=== PATIENT | male | born 1955 | race Caucasian/White ===

== ENCOUNTER 2018-04-15 09:58 | Day surgery (SDC) | payer OTHER ==
[~2018-04-15] VITALS: Ht 182.9 cm; Wt 88.5 kg
[2018-04-15] MEDS ORDERED: LIDOCAINE-MPF 1%, 5ML ONE (10:33)
[2018-04-15 11:00] LABS: BASOPHILS # (AUTO) 0.08 x10^3/uL (0-0.1); BASOPHILS % (AUTO) 1 % (0-1); EOSINOPHILS # (AUTO) 0.17 x10^3/uL (0-0.4); EOSINOPHILS % (AUTO) 2 % (1-7); LYMPHOCYTES # (AUTO) 1.78 x10^3/uL (1-3.4); LYMPHOCYTES % (AUTO) 21 % (22-44); MD NO; MEAN CORPUSCULAR HEMOGLOBIN 31.3 pg (27.5-34.5); MEAN CORPUSCULAR HGB CONC 34.3 g/dL (33.2-36.2); MEAN CORPUSCULAR VOLUME 91.4 fL (81-97); MEAN PLATELET VOLUME 7.1 fL (7.4-10.4); MONOCYTES # (AUTO) 0.68 x10^3/uL (0.2-0.8); MONOCYTES % (AUTO) 8 % (2-9); NEUTROPHILS % (AUTO) 68 % (42-75); PLATELET COUNT 369 x10^3/uL (130-400); RED BLOOD COUNT 4.35 x10^6/uL (4.38-5.82); RED CELL DISTRIBUTION WIDTH 12.9 % (9.4-14.8)
[2018-04-15 11:05] VITALS: BP 135/83
[2018-04-15 11:05] LABS: ALANINE AMINOTRANSFERASE 57 U/L (12-78); ALBUMIN 3.4 g/dL (3.4-5.0); ANION GAP 7 mmol/L (5-15); CALCIUM 8.7 mg/dL (8.5-10.1); CHLORIDE 109 mmol/L (98-107); CREATININE 1.03 mg/dL (0.7-1.3)
[2018-04-15 11:07] LABS: ALKALINE PHOSPHATASE 102 U/L (45-117); BILIRUBIN,TOTAL 0.7 mg/dL (0.2-1.0); TOTAL PROTEIN 7.3 g/dL (6.4-8.2)
[2018-04-15] MEDS ORDERED: NITROGLYCERIN 5 MG/ML, 10ML ONE (11:07)
[2018-04-15] MEDS ORDERED: MIDAZOLAM 1 MG/ML, 5ML ONE (11:07)
[2018-04-15] MEDS ORDERED: NALOXONE 1 MG/ML, 2ML ONE (11:07)
[2018-04-15] MEDS ORDERED: PROTAMINE SULFATE 10 MG/ML, 25ML ONE (11:07)
[2018-04-15] MEDS ORDERED: FLUMAZENIL 0.1 MG/1 ML, 5ML ONE (11:07)
[2018-04-15] MEDS ORDERED: FENTANYL PF 100 MCG/2ML ONE (11:07)
[2018-04-15] MEDS ORDERED: HEPARIN 1,000 UNITS/ML, 10ML ONE (11:07)
[2018-04-15] MEDS ORDERED: MONT10TA9 PO (11:10)
[2018-04-15] MEDS ORDERED: GABA100C PO (11:10)
[2018-04-15] MEDS ORDERED: DABI75CA3 PO (11:10)
[2018-04-15] MEDS ORDERED: celebrex PO (11:10)
[2018-04-15] MEDS ORDERED: keflex PO (11:10)
[2018-04-15 11:12] LABS: INTERNATIONAL NORMALIZED RATIO 0.97 (0.93-1.1); PROTHROMBIN TIME 10.3 Seconds (9.6-11.5)
[2018-04-15] MEDS ORDERED: SODIUM CHLORIDE 0.45% 1,000 ML IV SCH (12:00)
[2018-04-15] MEDS ORDERED: VISIPAQUE 270 MG/ML, 50ML BOTTLE ONE (13:00)
== END 2018-04-15 16:00 | disposition home or self-care (01) ==
LOC: OUT 09:58
PROVIDERS: ATTEND Surgery
DX: I70.712 Atherosclerosis of other type of bypass graft(s) of the extremities with intermittent claudication, left leg (principal); F17.210 Nicotine dependence, cigarettes, uncomplicated
CPT/HCPCS: 36200; 36415; 75630; 75710; 76937; 80053; 85025; 85610; 85730; 99156; 99157; C1751; C1769; C1894; J2250; J3010; Q9966; J1644; J2720; J2310

== ENCOUNTER 2018-04-21 09:36 | Inpatient (IN) | payer OTHER ==
[~2018-04-21] VITALS: Ht 182.9 cm; Wt 92.3 kg
[~2018-04-21 09:36] MED LIST: DABI75CA3 PO; GABA100C PO; HEPARIN 1,000 UNITS/ML, 10ML ONE; MONT10TA9 PO; PROTAMINE SULFATE 10 MG/ML, 5ML ONE; THROMBIN SPRAY 20,000 UNIT SPRAY TP ONE; celebrex PO; keflex PO
[2018-04-21 10:07] VITALS: BP 156/91
[2018-04-21] MEDS ORDERED: LACTATED RINGERS 1,000 ML IV SCH (10:13)
[2018-04-21] MEDS ORDERED: BACITRACIN 50,000 UNIT ONE (10:45)
[2018-04-21] MEDS ORDERED: MIDAZOLAM 1 MG/ML, 2ML ONE (11:30)
[2018-04-21] MEDS ORDERED: FENTANYL PF 100 MCG/2ML ONE ×4 (11:30→15:15)
[2018-04-21] MEDS ORDERED: BUPIVACAINE/PF-EPI 0.5% 1:200K ONE (12:15)
[2018-04-21] MEDS ORDERED: PROPOFOL 10 MG/ML, 20ML ONE (12:17)
[2018-04-21] MEDS ORDERED: METOCLOPRAMIDE 5 MG/ML, 2ML ONE (12:17)
[2018-04-21] MEDS ORDERED: DEXAMETHASONE 4 MG/ML, 5ML ONE (12:17)
[2018-04-21] MEDS ORDERED: CEFAZOLIN 1,000 MG ONE (12:17)
[2018-04-21] MEDS ORDERED: LIDOCAINE-MPF 2% ,5ML ONE (12:17)
[2018-04-21] MEDS ORDERED: ROCURONIUM 10 MG/ML,10ML ONE (12:17)
[2018-04-21] MEDS ORDERED: LABETALOL 20 MG/4 ML ONE (12:17)
[2018-04-21] MEDS ORDERED: LIDOCAINE JELLY 2%, 30GM ONE (12:17)
[2018-04-21] MEDS ORDERED: GLYCOPYRROLATE 0.2MG/1ML, 5ML ONE (12:17)
[2018-04-21] MEDS ORDERED: ONDANSETRON 2MG/ML, 2ML ONE (12:17)
[2018-04-21] MEDS ORDERED: HYDROmorphone 1 MG/ML, 1ML IV PRN (15:00)
[2018-04-21] MEDS ORDERED: ONDANSETRON 2MG/ML, 2ML IVPush PRN (15:00)
[2018-04-21] MEDS ORDERED: MEPERIDINE/PF 25MG/0.5ML IVPush PRN (15:00)
[2018-04-21] MEDS ORDERED: LABETALOL 5MG/ML, 20ML IV PRN (15:00)
[2018-04-21] MEDS ORDERED: MIDAZOLAM 1 MG/ML, 2ML IV PRN (15:00)
[2018-04-21] MEDS ORDERED: OXYcodone 5 MG/5 ML ORAL.SOL UDC PO PRN (15:00)
[2018-04-21] MEDS ORDERED: OXYcodone 5 MG/5 ML ORAL.SOL UDC ONE (15:15)
[2018-04-21] MEDS: FENTANYL PF 100 MCG/2ML IV PRN ×3 (15:20→15:46)
[2018-04-21] MEDS ORDERED: HYDROmorphone 2 MG/ML, 1ML ONE (15:42)
[2018-04-21] MEDS ORDERED: ONDANSETRON 2MG/ML, 2ML IV PRN (18:30)
[2018-04-21] MEDS ORDERED: morphine SULFATE 10 MG/ML, 1ML IV PRN (18:30)
[2018-04-21] MEDS ORDERED: ENOXAPARIN 30 MG/0.3 ML SQ SCH (18:30)
[2018-04-21] MEDS ORDERED: ACETAMINOPHEN 650 MG SUPP PR PRN (18:30)
[2018-04-21 19:16] VITALS: BP 141/78
[2018-04-21] MEDS: CEFAZOLIN PMX 1GM/50ML 50 ML IVPB SCH (20:51)
[2018-04-21] MEDS: GABAPENTIN 100 MG CAPSULE PO SCH (20:51)
[2018-04-21] MEDS ORDERED: MONTELUKAST 10 MG TABLET PO SCH (21:00)
[2018-04-21] MEDS: OXYcodone IR 5MG TABLET PO PRN (22:25)
[2018-04-22 00:05] VITALS: BP 121/67
[2018-04-22] MEDS: OXYcodone IR 5MG TABLET PO PRN ×4 (01:27→14:23)
[2018-04-22] MEDS: CEFAZOLIN PMX 1GM/50ML 50 ML IVPB SCH (04:08)
[2018-04-22 04:09] VITALS: BP 126/68
[2018-04-22] MEDS ORDERED: DABIGATRAN 75 MG CAPSULE PO SCH ×2 (09:00)
[2018-04-22 09:10] VITALS: BP 123/70
[2018-04-22] MEDS: GABAPENTIN 100 MG CAPSULE PO SCH (09:58)
[2018-04-22] MEDS ORDERED: OXYC5CAP2 PO (14:48)
[2018-04-22 14:50] VITALS: BP 123/70
== END 2018-04-22 15:35 | disposition home or self-care (01) | DRG 271 ==
LOC: OUT 09:36 → 4NOR 16:19 → OUT 16:28 → 4NOR 16:28 → DCLOUNGE 04-22 15:23
PROVIDERS: ADMIT Surgery; ATTEND Surgery
PROC: 04CJ0ZZ Extirpation of Matter from Left External Iliac Artery, Open Approach (ICD-10-PCS; 2018-04-21)
PROC: 04WY0KZ Revision of Nonautologous Tissue Substitute in Lower Artery, Open Approach (ICD-10-PCS; 2018-04-21)
PROC: 041 Lower Arteries, Bypass (ICD-10-PCS; 2018-04-21)
PROC: 03HY32Z Insertion of Monitoring Device into Upper Artery, Percutaneous Approach (ICD-10-PCS; 2018-04-21)
PROC: 04CL0ZZ Extirpation of Matter from Left Femoral Artery, Open Approach (ICD-10-PCS; principal; 2018-04-21 11:00)
DX: T82.7XXA Infection and inflammatory reaction due to other cardiac and vascular devices, implants and grafts, initial encounter (principal); I74.3 Embolism and thrombosis of arteries of the lower extremities; I74.5 Embolism and thrombosis of iliac artery; Y83.2 Surgical operation with anastomosis, bypass or graft as the cause of abnormal reaction of the patient, or of later complication, without mention of misadventure at the time of the procedure; J45.909 Unspecified asthma, uncomplicated; G62.9 Polyneuropathy, unspecified; R33.9 Retention of urine, unspecified; I70.0 Atherosclerosis of aorta; Y92.89 Other specified places as the place of occurrence of the external cause; Z79.02 Long term (current) use of antithrombotics/antiplatelets; Z86.718 Personal history of other venous thrombosis and embolism
CPT/HCPCS: 93005; G0378; J0690; J1100; J1170; J1644; J1650; J2250; J2405; J2704; J2720; J3010; J3490; C1757; C1768; J2270; J2765; J7120

== ENCOUNTER 2018-06-05 13:24 | Inpatient (IN) | payer OTHER ==
[~2018-06-05] VITALS: Ht 182.9 cm; Wt 91.6 kg
[~2018-06-05 13:24] MED LIST changes: -HEPARIN 1,000 UNITS/ML, 10ML ONE; +OXYC5CAP2 PO; -PROTAMINE SULFATE 10 MG/ML, 5ML ONE; -THROMBIN SPRAY 20,000 UNIT SPRAY TP ONE
[2018-06-05 14:19] LABS: MEAN CORPUSCULAR HEMOGLOBIN 29.5 pg (27.5-34.5); MEAN CORPUSCULAR HGB CONC 33.1 g/dL (33.2-36.2); MEAN CORPUSCULAR VOLUME 88.9 fL (81-97); MEAN PLATELET VOLUME 6.9 fL (7.4-10.4); PLATELET COUNT 305 x10^3/uL (130-400); RED BLOOD COUNT 4.87 x10^6/uL (4.38-5.82)
[2018-06-05 14:28] LABS: ALBUMIN 3.5 g/dL (3.4-5.0); ANION GAP 5 mmol/L (5-15); CALCIUM 9.1 mg/dL (8.5-10.1); CHLORIDE 109 mmol/L (98-107); CREATININE 1.44 mg/dL (0.7-1.3)
[2018-06-05] MEDS ORDERED: PIPERACILLIN/TAZO/PMX 3.375GM 50 ML ONE (14:53)
[2018-06-05] MEDS ORDERED: VANCOMYCIN PER PHARMACY MC ONE (15:00)
[2018-06-05] MEDS ORDERED: VANCOMYCIN 1,800 MG in SODIUM CHLORIDE 0.9% 250 ML IV ONE (15:00)
[2018-06-05] MEDS ORDERED: PIPERACILLIN/TAZO/PMX 3.375GM 50 ML IVPB ONE (15:00)
[2018-06-05 15:14] LABS: <RBC MORPHOLOGY> NORMAL; BASOPHILS # (AUTO) 0.06 x10^3/uL (0-0.1); BASOPHILS % (AUTO) 1 % (0-1); EOSINOPHILS % (AUTO) 0 % (1-7); LYMPHOCYTES # (AUTO) 1.48 x10^3/uL (1-3.4); LYMPHOCYTES % (AUTO) 11 % (22-44); MD MORPH REVIEW ONLY; MONOCYTES # (AUTO) 1.46 x10^3/uL (0.2-0.8); MONOCYTES % (AUTO) 11 % (2-9); NEUTROPHILS % (AUTO) 77 % (42-75)
[2018-06-05 15:15] LABS: <PLATELET ESTIMATE> ADEQUATE; <PLT MORPHOLOGY> NORMAL PLT MORPH
[2018-06-05] MEDS ORDERED: SODIUM CHLORIDE FLUSH 10ML SYR IVF PRN (15:30)
--- NOTE | 2018-06-05 15:57 | NUR ---
PT TO ED FOR INCREASING LEFT THIGH PAIN AND REDNEDD. HX OF FEM-FEM ON 04/21. INCISIONS ON LEG AND ABD HEALING WELL. EDMD ASSESSMENT COMPLETE AND ORDERS RECEIVED AND IMPLEMENTED. CONNECTED TO [employer]INT[employer]. VSS. NO NEEDS AT THIS TIME. PT RESTING IN ROOM WITH FAMILY AT BEDSIDE. AWAITING ROOM ASSIGNMENT
[2018-06-05] MEDS ORDERED: LABETALOL 5MG/ML, 20ML IVPush PRN (16:00)
[2018-06-05] MEDS ORDERED: ONDANSETRON 2MG/ML, 2ML IVPush PRN (16:00)
[2018-06-05] MEDS ORDERED: VANCOMYCIN PER PHARMACY MC PRN (16:00)
[2018-06-05] MEDS ORDERED: BISACODYL 10 MG SUPP PR PRN (16:00)
[2018-06-05] MEDS ORDERED: ZOLPIDEM 5MG TABLET PO PRN (16:00)
[2018-06-05] MEDS ORDERED: LIDODERM 5% PATCH TD PRN (16:00)
[2018-06-05] MEDS ORDERED: hydrALAzine 20 MG/ML, 1ML IVPush PRN (16:00)
[2018-06-05] MEDS ORDERED: DOCUSATE 100 MG CAPSULE PO PRN (16:00)
[2018-06-05] MEDS ORDERED: ONDANSETRON ODT 4 MG PO PRN (16:00)
[2018-06-05] MEDS ORDERED: POLYETHYLENE GLYCOL 17 GM PACKET PO PRN (16:00)
[2018-06-05 16:03] LABS: HCT (SEDRATE) 43.3 % (39.2-51.8)
--- NOTE | 2018-06-05 16:14 | NUR ---
pt resting in room. vss. awaiting room assignment.
[2018-06-05 16:21] LABS: FREE T4 (FREE THYROXINE) 1.14 ng/dL (0.76-1.46); THYROID STIMULATING HORMONE 3.97 mIU/L (0.358-3.740)
[2018-06-05] MEDS: LACTATED RINGERS 1,000 ML IV SCH (17:20)
[2018-06-05] MEDS: GABAPENTIN 100 MG CAPSULE PO SCH ×2 (17:20→20:27)
[2018-06-05] MEDS ORDERED: PHARMACOKINETIC CONSULTATION MC ONE (17:30)
[2018-06-05] MEDS ORDERED: PHARMACOKINETIC MONITORING MC PRN (17:30)
[2018-06-05 18:31] VITALS: BP 162/83
[2018-06-05 19:01] VITALS: BP 116/62
[2018-06-05] MEDS: DABIGATRAN 75 MG CAPSULE PO SCH (20:27)
[2018-06-05] MEDS: MONTELUKAST 10 MG TABLET PO SCH (20:27)
[2018-06-05] MEDS: PIPERACILLIN/TAZO 2.25 GM in SODIUM CHLORIDE 0.9% 50 ML IV SCH (20:28)
[2018-06-06 00:54] VITALS: BP 132/72
[2018-06-06] MEDS: PIPERACILLIN/TAZO 2.25 GM in SODIUM CHLORIDE 0.9% 50 ML IV SCH ×2 (02:36→08:53)
[2018-06-06 05:48] LABS: BASOPHILS # (AUTO) 0.05 x10^3/uL (0-0.1); BASOPHILS % (AUTO) 1 % (0-1); EOSINOPHILS # (AUTO) 0.18 x10^3/uL (0-0.4); EOSINOPHILS % (AUTO) 2 % (1-7); LYMPHOCYTES # (AUTO) 1.01 x10^3/uL (1-3.4); LYMPHOCYTES % (AUTO) 12 % (22-44); MD NO; MEAN CORPUSCULAR HEMOGLOBIN 29.5 pg (27.5-34.5); MEAN CORPUSCULAR HGB CONC 33.6 g/dL (33.2-36.2); MEAN CORPUSCULAR VOLUME 87.9 fL (81-97); MEAN PLATELET VOLUME 6.9 fL (7.4-10.4); MONOCYTES # (AUTO) 0.87 x10^3/uL (0.2-0.8); MONOCYTES % (AUTO) 11 % (2-9); NEUTROPHILS # (AUTO) 6.01 x10^3/uL (1.8-6.8); NEUTROPHILS % (AUTO) 74 % (42-75); PLATELET COUNT 252 x10^3/uL (130-400); RED BLOOD COUNT 4.15 x10^6/uL (4.38-5.82); RED CELL DISTRIBUTION WIDTH 13.3 % (9.4-14.8)
[2018-06-06 05:52] LABS: ANION GAP 5 mmol/L (5-15); CALCIUM 8.3 mg/dL (8.5-10.1); CHLORIDE 109 mmol/L (98-107); CREATININE 1.22 mg/dL (0.7-1.3)
[2018-06-06 07:11] VITALS: BP 123/72
[2018-06-06] MEDS: DABIGATRAN 75 MG CAPSULE PO SCH ×2 (08:53→22:13)
[2018-06-06] MEDS: GABAPENTIN 100 MG CAPSULE PO SCH ×3 (08:53→22:13)
[2018-06-06] MEDS: PANTOPROZOLE 40MG TABLET PO SCH (08:53)
[2018-06-06] MEDS: LACTATED RINGERS 1,000 ML IV SCH (08:54)
[2018-06-06] MEDS: VANCOMYCIN 1,800 MG in SODIUM CHLORIDE 0.9% 250 ML IV SCH (12:16)
[2018-06-06 12:35] VITALS: BP 142/84
[2018-06-06] MEDS: PIPERACILLIN/TAZO/PMX 2.25GM 50 ML IV SCH ×2 (15:08→22:11)
[2018-06-06] MEDS ORDERED: VANCOMYCIN 1,800 MG in SODIUM CHLORIDE 0.9% 250 ML IV SCH (17:30)
[2018-06-06 19:13] VITALS: BP 136/72
[2018-06-06] MEDS: MONTELUKAST 10 MG TABLET PO SCH (22:12)
[2018-06-06] MEDS: OXYcodone IR 5MG TABLET PO PRN ×2 (22:13→22:26)
[2018-06-07 00:48] VITALS: BP 116/74
[2018-06-07] MEDS: LACTATED RINGERS 1,000 ML IV SCH (02:06)
[2018-06-07] MEDS: PIPERACILLIN/TAZO/PMX 2.25GM 50 ML IV SCH ×2 (03:37→09:10)
[2018-06-07] MEDS ORDERED: OXYcodone IR 5MG TABLET PO PRN (04:38)
[2018-06-07 05:08] LABS: BASOPHILS # (AUTO) 0.05 x10^3/uL (0-0.1); BASOPHILS % (AUTO) 1 % (0-1); EOSINOPHILS # (AUTO) 0.31 x10^3/uL (0-0.4); EOSINOPHILS % (AUTO) 4 % (1-7); LYMPHOCYTES # (AUTO) 1.16 x10^3/uL (1-3.4); LYMPHOCYTES % (AUTO) 16 % (22-44); MD NO; MEAN CORPUSCULAR HEMOGLOBIN 29.8 pg (27.5-34.5); MEAN CORPUSCULAR HGB CONC 33.9 g/dL (33.2-36.2); MEAN CORPUSCULAR VOLUME 87.9 fL (81-97); MONOCYTES # (AUTO) 0.92 x10^3/uL (0.2-0.8); MONOCYTES % (AUTO) 13 % (2-9); NEUTROPHILS # (AUTO) 4.68 x10^3/uL (1.8-6.8); NEUTROPHILS % (AUTO) 66 % (42-75); PLATELET COUNT 255 x10^3/uL (130-400); RED BLOOD COUNT 4.02 x10^6/uL (4.38-5.82); RED CELL DISTRIBUTION WIDTH 13.2 % (9.4-14.8)
[2018-06-07 05:19] LABS: ANION GAP 3 mmol/L (5-15); CALCIUM 8.1 mg/dL (8.5-10.1); CHLORIDE 107 mmol/L (98-107)
[2018-06-07 05:20] LABS: CREATININE 1.31 mg/dL (0.7-1.3)
[2018-06-07] MEDS: VANCOMYCIN 1,800 MG in SODIUM CHLORIDE 0.9% 250 ML IV SCH (05:47)
[2018-06-07 08:00] VITALS: BP 119/70
[2018-06-07] MEDS: GABAPENTIN 100 MG CAPSULE PO SCH ×3 (08:40→20:17)
[2018-06-07] MEDS: PANTOPROZOLE 40MG TABLET PO SCH (08:40)
[2018-06-07] MEDS: DABIGATRAN 75 MG CAPSULE PO SCH ×2 (08:40→20:17)
[2018-06-07] MEDS: OXYcodone IR 5MG TABLET PO PRN ×4 (09:10→22:27)
[2018-06-07 14:00] VITALS: BP 139/73
[2018-06-07] MEDS: ACETAMINOPHEN 325 MG TABLET PO PRN (17:30)
[2018-06-07 20:11] VITALS: BP 126/62
[2018-06-07] MEDS: AMOXICILLIN/CLAV 875-125MG TABLET PO SCH (20:16)
[2018-06-07] MEDS: MONTELUKAST 10 MG TABLET PO SCH (20:18)
[2018-06-08] MEDS: OXYcodone IR 5MG TABLET PO PRN ×5 (02:50→20:34)
[2018-06-08 02:57] VITALS: BP 150/73
[2018-06-08 06:09] LABS: BASOPHILS # (AUTO) 0.05 x10^3/uL (0-0.1); BASOPHILS % (AUTO) 1 % (0-1); EOSINOPHILS # (AUTO) 0.33 x10^3/uL (0-0.4); EOSINOPHILS % (AUTO) 5 % (1-7); LYMPHOCYTES # (AUTO) 0.95 x10^3/uL (1-3.4); LYMPHOCYTES % (AUTO) 13 % (22-44); MD NO; MEAN CORPUSCULAR HGB CONC 34.2 g/dL (33.2-36.2); MEAN CORPUSCULAR VOLUME 87.6 fL (81-97); MEAN PLATELET VOLUME 6.8 fL (7.4-10.4); MONOCYTES # (AUTO) 0.87 x10^3/uL (0.2-0.8); MONOCYTES % (AUTO) 12 % (2-9); NEUTROPHILS # (AUTO) 5.11 x10^3/uL (1.8-6.8); NEUTROPHILS % (AUTO) 70 % (42-75); PLATELET COUNT 309 x10^3/uL (130-400); RED BLOOD COUNT 4.11 x10^6/uL (4.38-5.82); RED CELL DISTRIBUTION WIDTH 12.9 % (9.4-14.8)
[2018-06-08 06:16] LABS: ANION GAP 5 mmol/L (5-15); CALCIUM 8.6 mg/dL (8.5-10.1); CHLORIDE 106 mmol/L (98-107)
[2018-06-08 06:25] LABS: CREATININE 1.36 mg/dL (0.7-1.3)
[2018-06-08] MEDS: PANTOPROZOLE 40MG TABLET PO SCH (06:37)
[2018-06-08] MEDS: AMOXICILLIN/CLAV 875-125MG TABLET PO SCH ×2 (07:50→20:19)
[2018-06-08] MEDS: GABAPENTIN 100 MG CAPSULE PO SCH ×3 (07:50→20:19)
[2018-06-08] MEDS: DABIGATRAN 75 MG CAPSULE PO SCH ×2 (07:50→20:20)
[2018-06-08 08:00] VITALS: BP 130/69
[2018-06-08] MEDS: ACETAMINOPHEN 325 MG TABLET PO PRN ×3 (10:35→20:34)
[2018-06-08 14:12] VITALS: BP 136/74
[2018-06-08] MEDS: SODIUM CHLORIDE 0.9% 1,000 ML IV SCH (18:43)
[2018-06-08 19:29] VITALS: BP 108/61
[2018-06-08] MEDS: MONTELUKAST 10 MG TABLET PO SCH (20:21)
[2018-06-09 01:33] VITALS: BP 164/80
[2018-06-09] MEDS: OXYcodone IR 5MG TABLET PO PRN ×2 (01:44→07:49)
[2018-06-09] MEDS: SODIUM CHLORIDE 0.9% 1,000 ML IV SCH (05:09)
[2018-06-09] MEDS: ACETAMINOPHEN 325 MG TABLET PO PRN (05:13)
[2018-06-09 06:22] LABS: BASOPHILS # (AUTO) 0.05 x10^3/uL (0-0.1); BASOPHILS % (AUTO) 1 % (0-1); EOSINOPHILS # (AUTO) 0.26 x10^3/uL (0-0.4); EOSINOPHILS % (AUTO) 4 % (1-7); LYMPHOCYTES # (AUTO) 1.03 x10^3/uL (1-3.4); LYMPHOCYTES % (AUTO) 14 % (22-44); MD NO; MEAN CORPUSCULAR HEMOGLOBIN 29.9 pg (27.5-34.5); MEAN CORPUSCULAR HGB CONC 34.4 g/dL (33.2-36.2); MEAN CORPUSCULAR VOLUME 86.9 fL (81-97); MEAN PLATELET VOLUME 6.9 fL (7.4-10.4); MONOCYTES # (AUTO) 0.81 x10^3/uL (0.2-0.8); MONOCYTES % (AUTO) 11 % (2-9); NEUTROPHILS # (AUTO) 5.32 x10^3/uL (1.8-6.8); NEUTROPHILS % (AUTO) 71 % (42-75); PLATELET COUNT 283 x10^3/uL (130-400); RED BLOOD COUNT 3.97 x10^6/uL (4.38-5.82); RED CELL DISTRIBUTION WIDTH 13.1 % (9.4-14.8)
[2018-06-09 06:33] LABS: ANION GAP 4 mmol/L (5-15); CALCIUM 8.4 mg/dL (8.5-10.1); CHLORIDE 107 mmol/L (98-107)
[2018-06-09] MEDS: PANTOPROZOLE 40MG TABLET PO SCH (07:46)
[2018-06-09] MEDS: GABAPENTIN 100 MG CAPSULE PO SCH (07:46)
[2018-06-09] MEDS: AMOXICILLIN/CLAV 875-125MG TABLET PO SCH (07:47)
[2018-06-09] MEDS: DABIGATRAN 75 MG CAPSULE PO SCH (07:47)
[2018-06-09 08:37] VITALS: BP 108/64
[2018-06-09] MEDS ORDERED: AMOX1TAB12 PO (11:39)
== END 2018-06-09 12:50 | disposition home or self-care (01) | DRG 862 ==
LOC: ED 14:21 → EDIP 15:17 → 4WST 17:10 → DCLOUNGE 06-09 12:41
PROVIDERS: ADMIT Hospitalist; ATTEND Hospitalist
DX: T81.40XA Infection following a procedure, unspecified, initial encounter (principal); R65.11 Systemic inflammatory response syndrome (SIRS) of non-infectious origin with acute organ dysfunction; N17.9 Acute kidney failure, unspecified; L03.116 Cellulitis of left lower limb; J44.9 Chronic obstructive pulmonary disease, unspecified; I73.9 Peripheral vascular disease, unspecified; N18.3 Chronic kidney disease, stage 3 (moderate); Z87.891 Personal history of nicotine dependence
CPT/HCPCS: 36415; 80048; 80202; 82040; 83605; 84145; 84439; 84443; 85025; 85651; 86140; 87040; 93005; 96374; 99285; G0378; J2543; J3370; J7030; J7050; J7120

== ENCOUNTER 2018-08-04 09:56 | Emergency (ER) | payer OTHER ==
[~2018-08-04] VITALS: Ht 182.9 cm; Wt 88.6 kg
[~2018-08-04 09:56] MED LIST changes: +AMOX1TAB12 PO
--- NOTE | 2018-08-04 10:18 | NUR ---
REPORT RECEIVED, CARE ASSUMED.
--- NOTE | 2018-08-04 11:02 | NUR ---
DR GOOD AT BEDSIDE TO KRYSTLE MCKINNON.
--- NOTE | 2018-08-04 11:24 | NUR ---
PATIENT TRANSFERRED FROM TR 3 TO RM 37 VIA [facility]. REPORT FROM NEELA LEY. ASSUMED CARE OF PATIENT AT THIS TIME. VS STABLE AND UPDATED IN CHART. NAD NOTED. PATIENT TO AMBULATE PRIOR TO DC UPSTAIRS TO FINISH PROCEDURE PER DR GOOD.
--- NOTE | 2018-08-04 11:25 | NUR ---
THIS FLOAT RN AT BEDSIDE TO PROVIDE LUNCH RELIEF TO PRIMARY RNTEJAL. PT'S VS HAVE REMAINED STABLE. PT MOVED FROM T3 TO RM 37, REPORT TO NEELA NELSON. SPOKE WITH NEELA FRANCOIS IN [facility], PT TO RETURN TO THERE AFTER DC. ED MD GOOD AND ED RN LESLIE MADE AWARE. EXT [id number].
[2018-08-04 11:28] VITALS: BP 127/79
--- NOTE | 2018-08-04 11:32 | NUR ---
PATIENT AMBULATED DOWN HALLWAY WITH STEADY GAIT.
--- NOTE | 2018-08-04 11:55 | NUR ---
Patient/Caregiver given discharge instructions and they have confirmed that they understand the instructions. Patient ambulatory with steady gait. Patient instructed to return to Radiology for procedure. Per NEELA Galvin, leave both IV's (RT and LT AC) in place for radiology procedure.
== END 2018-08-04 11:57 | disposition home or self-care (01) ==
LOC: ED 11:32
DX: I95.9 Hypotension, unspecified (principal)
CPT/HCPCS: 93005; 99283

== ENCOUNTER 2018-08-12 10:13 | Day surgery (SDC) | payer OTHER ==
[~2018-08-12] VITALS: Ht 182.9 cm; Wt 90.1 kg
[2018-08-12] MEDS ORDERED: SODIUM CHLORIDE 0.45% 1,000 ML IV ONE (11:00)
[2018-08-12] MEDS ORDERED: LIDOCAINE-MPF 1%, 5ML ONE (11:12)
[2018-08-12 11:24] VITALS: BP 137/87
[2018-08-12] MEDS ORDERED: ANTIBIOTIC PO (11:33)
[2018-08-12 11:34] LABS: BASOPHILS % (AUTO) 1 % (0-1); EOSINOPHILS % (AUTO) 0 % (1-7); LYMPHOCYTES # (AUTO) 1.52 x10^3/uL (1-3.4); LYMPHOCYTES % (AUTO) 18 % (22-44); MD NO; MEAN CORPUSCULAR HEMOGLOBIN 28.3 pg (27.5-34.5); MEAN CORPUSCULAR HGB CONC 32.4 g/dL (33.2-36.2); MEAN CORPUSCULAR VOLUME 87.2 fL (81-97); MEAN PLATELET VOLUME 7.4 fL (7.4-10.4); MONOCYTES # (AUTO) 0.51 x10^3/uL (0.2-0.8); MONOCYTES % (AUTO) 6 % (2-9); NEUTROPHILS # (AUTO) 6.41 x10^3/uL (1.8-6.8); NEUTROPHILS % (AUTO) 75 % (42-75); PLATELET COUNT 244 x10^3/uL (130-400); RED BLOOD COUNT 4.63 x10^6/uL (4.38-5.82); RED CELL DISTRIBUTION WIDTH 15.4 % (9.4-14.8)
[2018-08-12 11:40] LABS: CREATININE 0.99 mg/dL (0.7-1.3)
[2018-08-12 11:41] LABS: INTERNATIONAL NORMALIZED RATIO 1.02 (0.93-1.1); PROTHROMBIN TIME 10.7 Seconds (9.6-11.5)
[2018-08-12] MEDS ORDERED: FENTANYL PF 100 MCG/2ML ONE (11:47)
[2018-08-12] MEDS ORDERED: FLUMAZENIL 0.1 MG/1 ML, 5ML ONE (11:47)
[2018-08-12] MEDS ORDERED: HEPARIN 1,000 UNITS/ML, 10ML ONE (11:47)
[2018-08-12] MEDS ORDERED: NALOXONE 1 MG/ML, 2ML ONE (11:47)
[2018-08-12] MEDS ORDERED: MIDAZOLAM 1 MG/ML, 5ML ONE (11:47)
== END 2018-08-12 15:50 | disposition home or self-care (01) ==
LOC: OUT 10:13
PROVIDERS: ATTEND Surgery
DX: T82.7XXA Infection and inflammatory reaction due to other cardiac and vascular devices, implants and grafts, initial encounter (principal); L03.116 Cellulitis of left lower limb; B96.5 Pseudomonas (aeruginosa) (mallei) (pseudomallei) as the cause of diseases classified elsewhere; I70.212 Atherosclerosis of native arteries of extremities with intermittent claudication, left leg; I65.23 Occlusion and stenosis of bilateral carotid arteries; F17.210 Nicotine dependence, cigarettes, uncomplicated; Z79.899 Other long term (current) drug therapy; Z88.8 Allergy status to other drugs, medicaments and biological substances; Y83.2 Surgical operation with anastomosis, bypass or graft as the cause of abnormal reaction of the patient, or of later complication, without mention of misadventure at the time of the procedure
CPT/HCPCS: 36200; 36415; 75630; 76937; 82565; 84520; 85025; 85610; 85730; 99156; 99157; C1751; C1769; C1894; J2250; J3010; J1644; J2310

== ENCOUNTER 2018-09-09 14:21 | Outpatient (CLI) | payer OTHER ==
[~2018-09-09 14:21] MED LIST changes: +ANTIBIOTIC PO
== END 2018-09-09 23:59 | disposition home or self-care (01) ==
LOC: CVU 14:21
PROVIDERS: ATTEND Surgery
DX: T86.821 Skin graft (allograft) (autograft) failure (principal); Y83.2 Surgical operation with anastomosis, bypass or graft as the cause of abnormal reaction of the patient, or of later complication, without mention of misadventure at the time of the procedure
CPT/HCPCS: 93970

== ENCOUNTER → 2018-09-27 | Outpatient (CLI) | payer OTHER ==
[~2018-09-27] MED LIST changes: +DICY10CA3 PO; +LEVO250T8 PO
== END | disposition home or self-care (01) ==
LOC: STAR 15:24
PROVIDERS: ATTEND Surgery
DX: Z01.818 Encounter for other preprocedural examination (principal); I44.4 Left anterior fascicular block; T82.7XXA Infection and inflammatory reaction due to other cardiac and vascular devices, implants and grafts, initial encounter; I70.212 Atherosclerosis of native arteries of extremities with intermittent claudication, left leg; L03.116 Cellulitis of left lower limb; Y83.2 Surgical operation with anastomosis, bypass or graft as the cause of abnormal reaction of the patient, or of later complication, without mention of misadventure at the time of the procedure; Y92.89 Other specified places as the place of occurrence of the external cause
CPT/HCPCS: 93005

== ENCOUNTER 2018-10-03 10:54 | Inpatient (IN) | payer OTHER ==
[~2018-10-03] VITALS: Ht 182.9 cm; Wt 90.4 kg
[2018-10-03] MEDS ORDERED: LACTATED RINGERS 1,000 ML IV SCH (11:21)
[2018-10-03] MEDS ORDERED: BACITRACIN 50,000 UNIT ONE (12:00)
[2018-10-03] MEDS ORDERED: HEPARIN 1,000 UNITS/ML, 10ML ONE (12:00)
[2018-10-03] MEDS ORDERED: EPINEPHRINE 1 MG/ML, 1ML ONE (12:00)
[2018-10-03] MEDS ORDERED: THROMBIN 20,000 UNIT VIAL TP ONE (12:00)
[2018-10-03] MEDS ORDERED: BUPIVACAINE/PF 0.5% ONE (12:00)
[2018-10-03] MEDS ORDERED: PROTAMINE SULFATE 10 MG/ML, 5ML ONE (12:21)
[2018-10-03] MEDS ORDERED: MIDAZOLAM 1 MG/ML, 2ML ONE (12:59)
[2018-10-03] MEDS ORDERED: FENTANYL PF 250 MCG/5ML ONE (13:01)
[2018-10-03] MEDS ORDERED: hydrALAzine 20 MG/ML, 1ML IV PRN (13:30)
[2018-10-03] MEDS ORDERED: LABETALOL 5MG/ML, 20ML IV PRN (13:30)
[2018-10-03] MEDS ORDERED: ACETAMINOPHEN 325 MG TABLET PO PRN (13:30)
[2018-10-03] MEDS ORDERED: MEPERIDINE/PF 25MG/0.5ML IVPush PRN (13:30)
[2018-10-03] MEDS ORDERED: KETOROLAC 30 MG/1 ML IV PRN (13:30)
[2018-10-03] MEDS ORDERED: HYDROmorphone 2 MG/ML, 1ML IVPush PRN (13:30)
[2018-10-03] MEDS ORDERED: OXYcodone 5 MG/5 ML ORAL.SOL UDC PO PRN (13:30)
[2018-10-03] MEDS ORDERED: PROMETHAZINE 25 MG/ML, 1ML IV PRN (13:30)
[2018-10-03] MEDS ORDERED: ALBUTEROL SULFATE 2.5 MG/3 ML NPPB PRN (13:30)
[2018-10-03] MEDS ORDERED: DIAZEPAM 5 MG/ML, 2ML IVPush PRN (13:30)
[2018-10-03] MEDS ORDERED: PROPOFOL 10 MG/ML, 20ML ONE (14:30)
[2018-10-03] MEDS ORDERED: ONDANSETRON 2MG/ML, 2ML ONE (14:30)
[2018-10-03] MEDS ORDERED: CEFAZOLIN 1,000 MG ONE (14:30)
[2018-10-03] MEDS ORDERED: DEXAMETHASONE 4 MG/ML, 1ML ONE (14:30)
[2018-10-03] MEDS ORDERED: MEPERIDINE/PF 25MG/ML,1ML ONE (14:56)
[2018-10-03] MEDS ORDERED: FENTANYL PF 100 MCG/2ML ONE (14:56)
[2018-10-03] MEDS: FENTANYL PF 100 MCG/2ML IV PRN ×3 (15:00→15:26)
[2018-10-03] MEDS ORDERED: hydrALAzine 20 MG/ML, 1ML ONE (15:05)
[2018-10-03] MEDS ORDERED: OXYcodone 5 MG/5 ML ORAL.SOL UDC ONE (15:25)
[2018-10-03] MEDS ORDERED: HYDROmorphone 2 MG/ML, 1ML ONE (15:32)
[2018-10-03 16:15] VITALS: BP 145/90
[2018-10-03] MEDS ORDERED: FENTANYL PF 100 MCG/2ML IV PRN (17:30)
[2018-10-03] MEDS ORDERED: ONDANSETRON ODT 4 MG PO PRN (17:30)
[2018-10-03] MEDS ORDERED: ONDANSETRON 2MG/ML, 2ML IV PRN (17:30)
[2018-10-03] MEDS: OXYcodone IR 5MG TABLET PO PRN ×3 (17:38→20:55)
[2018-10-03] MEDS: DICYCLOMINE 10 MG CAPSULE PO SCH (19:12)
[2018-10-03] MEDS: GABAPENTIN 100 MG CAPSULE PO SCH (19:12)
[2018-10-03] MEDS: MONTELUKAST 10 MG TABLET PO SCH (19:12)
[2018-10-03 19:20] VITALS: BP 140/77
[2018-10-03] MEDS: SODIUM CHLORIDE 0.9% 1,000 ML IV SCH (21:00)
[2018-10-03 23:54] VITALS: BP 133/76
[2018-10-04] MEDS: OXYcodone IR 5MG TABLET PO PRN ×7 (00:06→23:13)
[2018-10-04 04:03] VITALS: BP 137/79
[2018-10-04 06:25] VITALS: BP 126/73
[2018-10-04] MEDS: GABAPENTIN 100 MG CAPSULE PO SCH ×3 (08:50→19:53)
[2018-10-04] MEDS: LEVOFLOXACIN 250 MG TABLET PO SCH (08:50)
[2018-10-04] MEDS: DICYCLOMINE 10 MG CAPSULE PO SCH ×3 (08:50→19:52)
[2018-10-04 13:05] VITALS: BP 148/79
[2018-10-04] MEDS: SODIUM CHLORIDE 0.9% 1,000 ML IV SCH (17:00)
[2018-10-04 19:22] VITALS: BP 131/71
[2018-10-04] MEDS: MONTELUKAST 10 MG TABLET PO SCH (19:52)
[2018-10-05 02:09] VITALS: BP 127/71
[2018-10-05] MEDS: OXYcodone IR 5MG TABLET PO PRN ×4 (03:03→15:15)
[2018-10-05 06:40] VITALS: BP 149/85
[2018-10-05] MEDS: DICYCLOMINE 10 MG CAPSULE PO SCH (08:40)
[2018-10-05] MEDS: LEVOFLOXACIN 250 MG TABLET PO SCH (08:40)
[2018-10-05] MEDS: GABAPENTIN 100 MG CAPSULE PO SCH (08:44)
[2018-10-05 13:37] VITALS: BP 138/84
[2018-10-05 14:58] VITALS: BP 153/80
[2018-10-05] MEDS: SODIUM CHLORIDE 0.9% 1,000 ML IV SCH (15:00)
[2018-10-05] MEDS ORDERED: OXYC5TAB3 PO (15:41)
[2018-10-05] MEDS ORDERED: LEVO500T47 PO (15:42)
== END 2018-10-05 16:00 | disposition home health service (06) | DRG 254 ==
LOC: OR 10:54 → 4NOR 16:11 → OR 22:54 → 4NOR 22:56 → OBSVTOIN 10-04 15:30 → DCLOUNGE 10-05 15:45
PROVIDERS: ADMIT Surgery; ATTEND Surgery
PROC: 04PY0JZ Removal of Synthetic Substitute from Lower Artery, Open Approach (ICD-10-PCS; principal; 2018-10-04)
DX: T82.7XXA Infection and inflammatory reaction due to other cardiac and vascular devices, implants and grafts, initial encounter (principal); Y83.2 Surgical operation with anastomosis, bypass or graft as the cause of abnormal reaction of the patient, or of later complication, without mention of misadventure at the time of the procedure; Z79.2 Long term (current) use of antibiotics; Z88.8 Allergy status to other drugs, medicaments and biological substances; F17.200 Nicotine dependence, unspecified, uncomplicated; Y92.89 Other specified places as the place of occurrence of the external cause
CPT/HCPCS: C1729; G0378; J0171; J0690; J1100; J1170; J1644; J2175; J2250; J2405; J2704; J2720; J3010; J0360; J7120

== ENCOUNTER → 2020-03-18 | Outpatient (CLI) | payer OTHER ==
[~2020-03-18] MED LIST changes: +GADOTERATE 10 MMOL/20 ML VIAL ONE; +LEVO500T47 PO; -MONT10TA9 PO; +MONT10TA96 PO; +OXYC5TAB3 PO
== END | disposition home or self-care (01) ==
LOC: EDSTATUS 12-25 08:00 → RAD 06:52 → EDSTATUS 07:00
PROVIDERS: ATTEND Surgery
DX: M79.605 Pain in left leg (principal)
CPT/HCPCS: 72197; A9575

== ENCOUNTER 2020-04-19 13:27 | Outpatient (CLI) | payer OTHER ==
[~2020-04-19 13:27] MED LIST changes: -GADOTERATE 10 MMOL/20 ML VIAL ONE; -OXYC5TAB3 PO; +OXYC5TAB98 PO
[2020-04-19] MEDS ORDERED: PENT400T12 PO (13:59)
[2020-04-19] MEDS ORDERED: CIPR500T3 PO (13:59)
== END 2020-04-19 23:59 | disposition home or self-care (01) ==
LOC: STAR 13:27
PROVIDERS: ATTEND Surgery
DX: Z01.812 Encounter for preprocedural laboratory examination (principal); Z20.822 Contact with and (suspected) exposure to COVID-19; I44.4 Left anterior fascicular block
CPT/HCPCS: 87635; 93005

== ENCOUNTER 2020-04-25 05:29 | Inpatient (IN) | payer OTHER ==
[~2020-04-25] VITALS: Ht 182.9 cm; Wt 86.5 kg
[~2020-04-25 05:29] MED LIST changes: +CIPR500T4 PO; +MONT10TA17 PO; -MONT10TA96 PO; +PENT400T12 PO
[2020-04-25 06:06] VITALS: BP 188/113
[2020-04-25] MEDS ORDERED: CHLORHEXIDINE 15 ML UDC ONE (06:13)
[2020-04-25] MEDS: LACTATED RINGERS 1,000 ML IV SCH ×2 (06:19→15:19)
[2020-04-25] MEDS ORDERED: CHLORHEXIDINE 15 ML UDC MM ONE (06:30)
[2020-04-25] MEDS ORDERED: PROTAMINE SULFATE 10 MG/ML, 5ML ONE (06:30)
[2020-04-25] MEDS ORDERED: THROMBIN 20,000 UNIT VIAL TP ONE (06:31)
[2020-04-25] MEDS ORDERED: BACITRACIN 50,000 UNIT ONE (06:31)
[2020-04-25] MEDS ORDERED: HEPARIN 1,000 UNITS/ML, 10ML ONE ×2 (06:31→07:15)
[2020-04-25] MEDS ORDERED: MIDAZOLAM 1 MG/ML, 2ML ONE (07:13)
[2020-04-25] MEDS ORDERED: FENTANYL PF 250 MCG/5ML ONE (07:14)
[2020-04-25] MEDS ORDERED: LABETALOL 5MG/ML, 20ML ONE (07:14)
[2020-04-25] MEDS ORDERED: LIDOCAINE-MPF 1%, 2ML ONE (07:27)
[2020-04-25] MEDS ORDERED: SUGAMMADEX 200 MG/2 ML IVPush ONE (07:27)
[2020-04-25] MEDS ORDERED: ROCURONIUM 10MG/ML,5ML ONE (07:27)
[2020-04-25] MEDS ORDERED: CEFAZOLIN 1,000 MG ONE (07:27)
[2020-04-25] MEDS ORDERED: PROPOFOL 10 MG/ML, 20ML ONE (07:27)
[2020-04-25] MEDS ORDERED: PHENYLEPHRINE 10 MG/ML ONE (07:27)
[2020-04-25] MEDS ORDERED: FENTANYL PF 100 MCG/2ML ONE ×3 (08:45→09:51)
[2020-04-25] MEDS ORDERED: MEPERIDINE/PF 25MG/ML,1ML ONE (08:46)
[2020-04-25] MEDS ORDERED: OXYcodone 5 MG/5 ML ORAL.SOL UDC ONE (08:46)
[2020-04-25] MEDS: FENTANYL PF 100 MCG/2ML IV PRN ×6 (08:58→09:59)
[2020-04-25] MEDS ORDERED: DIPHENHYDRAMINE 50 MG/ML, 1ML IVPush PRN ×2 (09:00→12:00)
[2020-04-25] MEDS ORDERED: HALOPERIDOL 5 MG/ML IV PRN (09:00)
[2020-04-25] MEDS ORDERED: ONDANSETRON 2MG/ML, 2ML IVPush PRN ×3 (09:00→15:30)
[2020-04-25] MEDS ORDERED: ACETAMINOPHEN 325 MG TABLET PO PRN ×2 (09:00→15:30)
[2020-04-25] MEDS ORDERED: ALBUTEROL/IPRATROPIUM 2.5MG/0.5MG, 3 ML NPPB PRN (09:00)
[2020-04-25] MEDS ORDERED: hydrALAzine 20 MG/ML, 1ML IV PRN (09:00)
[2020-04-25] MEDS ORDERED: LORazepam 2 MG/ML, 1ML IVPush PRN (09:00)
[2020-04-25] MEDS ORDERED: METOPROLOL 1 MG/ML, 5ML IV PRN (09:00)
[2020-04-25] MEDS ORDERED: METOCLOPRAMIDE 5 MG/ML, 2ML IVPush PRN (09:00)
[2020-04-25] MEDS ORDERED: OXYcodone 5 MG/5 ML ORAL.SOL UDC PO PRN (09:00)
[2020-04-25] MEDS ORDERED: LABETALOL 5MG/ML, 20ML IV PRN (09:00)
[2020-04-25] MEDS ORDERED: ALBUTEROL SULFATE 2.5 MG/3 ML NPPB PRN (09:00)
[2020-04-25] MEDS ORDERED: PROMETHAZINE 25 MG/ML, 1ML IVPush PRN (09:00)
[2020-04-25] MEDS ORDERED: HYDROmorphone 1 MG/ML, 1ML INJ IVPush PRN (09:00)
[2020-04-25] MEDS ORDERED: EPHEDRINE 50 MG/ML, 1ML IVPush PRN (09:00)
[2020-04-25] MEDS ORDERED: hydrALAzine 20 MG/ML, 1ML ONE (09:01)
[2020-04-25] MEDS ORDERED: ACETAMINOPHEN 650 MG/20.3 ML UDC ONE (09:15)
[2020-04-25] MEDS ORDERED: ONDANSETRON 2MG/ML, 2ML ONE (09:17)
[2020-04-25] MEDS ORDERED: LACTATED RINGERS 1,000 ML IV SCH (12:00)
[2020-04-25] MEDS ORDERED: ALBUTEROL HFA 90 MCG/SPRAY INH PRN (13:30)
[2020-04-25] MEDS: HYDROmorphone 2 MG/ML, 1ML IV PRN ×2 (13:36→22:18)
[2020-04-25] MEDS: OXYcodone/APAP 5/325MG TABLET PO PRN ×2 (13:40→19:45)
[2020-04-25] MEDS ORDERED: BISACODYL 10 MG SUPP PR PRN (15:30)
[2020-04-25] MEDS ORDERED: NICOTINE 21 MG/24 HR PATCH.TD24 TD ONE (15:30)
[2020-04-25] MEDS ORDERED: VANCOMYCIN PER PHARMACY MC PRN (15:30)
[2020-04-25] MEDS ORDERED: SODIUM CHLORIDE 0.9%, 500ML IVBOLUS ONE (15:30)
[2020-04-25] MEDS ORDERED: POLYETHYLENE GLYCOL 17 GM PACKET PO PRN (15:30)
[2020-04-25] MEDS: SODIUM CHLORIDE 0.9% 1,000 ML IV SCH (15:45)
[2020-04-25] MEDS: hydrALAzine 20 MG/ML, 1ML IVPush PRN ×2 (15:52→19:44)
[2020-04-25 16:34] LABS: BASOPHILS % (AUTO) 1 % (0-1); EOSINOPHILS % (AUTO) 1 % (1-7); LYMPHOCYTES % (AUTO) 12 % (22-44); MEAN CORPUSCULAR HEMOGLOBIN 30.2 pg (27.5-34.5); MEAN CORPUSCULAR HGB CONC 33.7 g/dL (33.2-36.2); MEAN PLATELET VOLUME 7.3 fL (7.4-10.4); MONOCYTES % (AUTO) 8 % (2-9); NEUTROPHILS % (AUTO) 79 % (42-75); PLATELET COUNT 203 x10^3/uL (130-400); RED BLOOD COUNT 4.53 x10^6/uL (4.38-5.82)
[2020-04-25 16:43] LABS: MD NO
[2020-04-25] MEDS: PIPERACILLIN/TAZO/PMX 3.375GM 50 ML IV SCH ×2 (16:43→22:18)
[2020-04-25 16:45] LABS: ALANINE AMINOTRANSFERASE 17 U/L (12-78); ANION GAP 2 mmol/L (5-15); CALCIUM 8.3 mg/dL (8.5-10.1); CHLORIDE 112 mmol/L (98-107); CREATININE 1.35 mg/dL (0.7-1.3)
[2020-04-25 16:48] LABS: ALKALINE PHOSPHATASE 81 U/L (45-117); BILIRUBIN,TOTAL 0.9 mg/dL (0.2-1.0); TOTAL PROTEIN 6.4 g/dL (6.4-8.2)
[2020-04-25] MEDS ORDERED: VANCOMYCIN 2,000 MG in SODIUM CHLORIDE 0.9% 500 ML IV ONE (17:00)
[2020-04-25] MEDS ORDERED: CIPROFLOXACIN 500 MG TABLET PO SCH (21:00)
[2020-04-25] MEDS: LABETALOL 5MG/ML, 20ML IVPush PRN (21:35)
[2020-04-26] MEDS: PIPERACILLIN/TAZO/PMX 3.375GM 50 ML IV SCH ×4 (04:44→22:13)
[2020-04-26] MEDS: SODIUM CHLORIDE 0.9% 1,000 ML IV SCH (04:45)
[2020-04-26] MEDS: hydrALAzine 20 MG/ML, 1ML IVPush PRN (04:45)
[2020-04-26 04:49] LABS: BASOPHILS % (AUTO) 1 % (0-1); EOSINOPHILS % (AUTO) 1 % (1-7); LYMPHOCYTES % (AUTO) 11 % (22-44); MEAN CORPUSCULAR HEMOGLOBIN 30.6 pg (27.5-34.5); MEAN CORPUSCULAR HGB CONC 33.9 g/dL (33.2-36.2); MEAN PLATELET VOLUME 7.7 fL (7.4-10.4); MONOCYTES % (AUTO) 10 % (2-9); NEUTROPHILS % (AUTO) 77 % (42-75); PLATELET COUNT 136 x10^3/uL (130-400); RED BLOOD COUNT 4.24 x10^6/uL (4.38-5.82); RED CELL DISTRIBUTION WIDTH 13.9 % (9.4-14.8)
[2020-04-26 04:51] LABS: MD NO
[2020-04-26 05:00] LABS: ALBUMIN 2.5 g/dL (3.4-5.0); ANION GAP 4 mmol/L (5-15); CALCIUM 7.8 mg/dL (8.5-10.1); CHLORIDE 111 mmol/L (98-107)
[2020-04-26 05:05] LABS: ALANINE AMINOTRANSFERASE 15 U/L (12-78); ALKALINE PHOSPHATASE 67 U/L (45-117); BILIRUBIN,TOTAL 1.3 mg/dL (0.2-1.0); CREATININE 1.28 mg/dL (0.7-1.3)
[2020-04-26] MEDS: VANCOMYCIN 1,700 MG in SODIUM CHLORIDE 0.9% 250 ML IV SCH ×2 (05:41→22:58)
[2020-04-26] MEDS: HYDROmorphone 2 MG/ML, 1ML IV PRN (05:47)
[2020-04-26] MEDS ORDERED: MAGNESIUM SULFATE PMX 2GM/50ML 50 ML IV ONE (07:00)
[2020-04-26] MEDS: LABETALOL 5MG/ML, 20ML IVPush PRN (09:36)
[2020-04-26] MEDS: SENNA/DOCUSATE TABLET PO SCH (09:36)
[2020-04-26] MEDS: OXYcodone/APAP 5/325MG TABLET PO PRN ×3 (09:38→18:22)
[2020-04-26] MEDS: LISINOPRIL 5 MG TABLET PO SCH ×2 (10:44→22:13)
[2020-04-26] MEDS ORDERED: LACTATED RINGERS 1,000 ML IV SCH (12:00)
[2020-04-26 16:52] VITALS: BP 130/67
[2020-04-26] MEDS: CARVEDILOL 3.125 MG TABLET PO SCH (18:02)
[2020-04-26 19:37] VITALS: BP 114/59
[2020-04-27 01:46] VITALS: BP_SYST 140; BP_SYST 40; BP_DIAS 71
[2020-04-27] MEDS: OXYcodone/APAP 5/325MG TABLET PO PRN ×4 (03:46→19:45)
[2020-04-27] MEDS: PIPERACILLIN/TAZO/PMX 3.375GM 50 ML IV SCH ×2 (03:46→09:14)
[2020-04-27] MEDS: CARVEDILOL 3.125 MG TABLET PO SCH ×2 (06:14→16:45)
[2020-04-27 07:03] VITALS: BP 132/68
[2020-04-27 08:09] LABS: ALANINE AMINOTRANSFERASE 11 U/L (12-78); ALBUMIN 2.6 g/dL (3.4-5.0); ANION GAP 6 mmol/L (5-15); CHLORIDE 111 mmol/L (98-107); CREATININE 1.31 mg/dL (0.7-1.3)
[2020-04-27 08:11] LABS: ALKALINE PHOSPHATASE 59 U/L (45-117); BILIRUBIN,TOTAL 1.4 mg/dL (0.2-1.0); TOTAL PROTEIN 5.8 g/dL (6.4-8.2)
[2020-04-27 08:20] LABS: BASOPHILS % (AUTO) 1 % (0-1); EOSINOPHILS % (AUTO) 2 % (1-7); LYMPHOCYTES % (AUTO) 12 % (22-44); MEAN CORPUSCULAR HEMOGLOBIN 30.7 pg (27.5-34.5); MEAN CORPUSCULAR HGB CONC 34.3 g/dL (33.2-36.2); MEAN PLATELET VOLUME 7.7 fL (7.4-10.4); MONOCYTES % (AUTO) 9 % (2-9); NEUTROPHILS % (AUTO) 77 % (42-75); PLATELET COUNT 192 x10^3/uL (130-400); RED BLOOD COUNT 3.79 x10^6/uL (4.38-5.82); RED CELL DISTRIBUTION WIDTH 13.5 % (9.4-14.8)
[2020-04-27 08:22] LABS: MD NO
[2020-04-27] MEDS: SENNA/DOCUSATE TABLET PO SCH (09:13)
[2020-04-27] MEDS: LISINOPRIL 5 MG TABLET PO SCH ×2 (09:13→19:44)
[2020-04-27 12:05] VITALS: BP 107/67
[2020-04-27] MEDS: LEVOFLOXACIN 750 MG TABLET PO SCH (14:37)
[2020-04-27 20:26] VITALS: BP 143/67
[2020-04-28 00:59] VITALS: BP 160/89
[2020-04-28] MEDS: CARVEDILOL 3.125 MG TABLET PO SCH (05:40)
[2020-04-28 07:02] VITALS: BP 174/96
[2020-04-28 08:06] VITALS: BP 163/95
[2020-04-28] MEDS: LEVOFLOXACIN 750 MG TABLET PO SCH (08:07)
[2020-04-28] MEDS: LISINOPRIL 5 MG TABLET PO SCH (08:08)
[2020-04-28] MEDS: SENNA/DOCUSATE TABLET PO SCH (08:08)
[2020-04-28] MEDS: hydrALAzine 20 MG/ML, 1ML IVPush PRN (08:09)
[2020-04-28] MEDS: OXYcodone/APAP 5/325MG TABLET PO PRN (08:13)
[2020-04-28 08:55] VITALS: BP 120/75
[2020-04-28] MEDS ORDERED: SENN-211 PO (09:05)
[2020-04-28] MEDS ORDERED: CARV6.252 PO (09:05)
[2020-04-28] MEDS ORDERED: LEVO750T6 PO (09:05)
[2020-04-28] MEDS ORDERED: LISI-167 PO (09:05)
[2020-04-28] MEDS ORDERED: OXYC1TAB14 PO (09:05)
== END 2020-04-28 11:34 | disposition home or self-care (01) | DRG 253 ==
LOC: OUT 05:29 → CCU 11:02 → 3N 04-26 11:49 → DCLOUNGE 04-28 11:28
PROVIDERS: ADMIT Surgery; ATTEND Family Medicine
PROC: 04PY07Z Removal of Autologous Tissue Substitute from Lower Artery, Open Approach (ICD-10-PCS; principal; 2020-04-25 07:30)
DX: T82.7XXA Infection and inflammatory reaction due to other cardiac and vascular devices, implants and grafts, initial encounter (principal); L03.314 Cellulitis of groin; M19.90 Unspecified osteoarthritis, unspecified site; J44.9 Chronic obstructive pulmonary disease, unspecified; I73.9 Peripheral vascular disease, unspecified; I65.23 Occlusion and stenosis of bilateral carotid arteries; I10 Essential (primary) hypertension; G62.9 Polyneuropathy, unspecified; B19.20 Unspecified viral hepatitis C without hepatic coma; M10.9 Gout, unspecified; Y83.2 Surgical operation with anastomosis, bypass or graft as the cause of abnormal reaction of the patient, or of later complication, without mention of misadventure at the time of the procedure; Z72.0 Tobacco use
CPT/HCPCS: 36415; J3490; 80053; 83735; 84100; 85025; 87015; 87040; 87070; 87075; 87077; 87081; 87102; 87116; 87186; 87205; 87206; G0378; J0690; J1170; J1644; J2250; J2405; J2543; J2704; J2720; J3010; J3370; J0360; J1200; J2370; J3475; J7030; J7040; J7050; J7120